=== PATIENT | female | born 1990 | race Two or more races ===

== ENCOUNTER 2024-08-31 12:00 | Emergency (ER) | payer OTHER, SELFPAY ==
[2024-08-31 12:25] VITALS: BP 141/91; PULSE 66; RESP 16; TEMP 36.7; O2SAT 99; BMI 37.5
--- NOTE | 2024-08-31 12:31 | XR_ITS ---
Examination: PA lateral chest 2 views Technique: Upright PA lateral chest 2 views Exam date and time: August 31, 2024 1127 hrs. Comparison 07/09/2024, May 05, 2022 Indications: Coughing today Findings: Normal heart size Lungs are clear. Stable small granuloma right midlung compared with May 05, 2022 Impression: No interval pneumonia or pulmonary edema
--- NOTE | 2024-08-31 12:31 | XR_ITS ---
Examination: CT abdomen and pelvis without contrast. Coronal 3-D reconstructions. Sagittal 2-D reconstructions. Date and time of exam:August 31, 2024 1652 hrs. Indications: Onset left lower abdominal pain beginning one week ago, episodes left upper abdominal pain also March 29, 2024, diagnosis primary hepatocellular disease CTDI: vol (mGy): 50.5 DLP: (mGycm): 874 Technique: Axial images of the abdomen have been obtained, 3 mm slice thickness Intravenous contrast material has not been administered. Low dose protocols were performed. One or more of the following dose reduction techniques were used; automated exposure control, adjustment of the mA and/or KV according to patient size, use of iterative reconstruction technique. Findings: No focal liver lesions No gallstones Spleen not enlarged No pancreatic or adrenal mass No renal or ureteral calculi, no hydronephrosis Normal appendix 8mm fat-containing umbilical hernia No bowel obstruction No diverticulitis Exophytic uterine mass, axial image 190 measuring 33 x 35 mm Urinary bladder contracted Mild osteopenia Impression: No renal or ureteral calculi, no hydronephrosis Normal appendix 8mm fat-containing umbilical hernia 33 x 35 mm exophytic uterine mass, recommend pelvic sonography follow-up
[2024-08-31 12:54] LABS: Basophils % (Auto) 0 % (0-2.5); Eosinophils # (Auto) 0.1 Thou/mm3 (0.0-0.5); Eosinophils % (Auto) 1 % (0-10); Hematocrit 42.6 % (36.0-46.0); Hemoglobin 14.4 g/dL (12.0-16.0); Immature Granulocytes % (Auto) 0 % (0-0); Immature Granulocytes Auto 0.02 Thou/mm3 (0.00-0.00); Lymphocytes # (Auto) 1.8 Thou/mm3 (1.0-4.8); Lymphocytes % (Auto) 29 % (10-50); Mean Corpuscular HGB Conc 33.8 g/dl (31.0-37.0); Mean Corpuscular Hemoglobin 28.7 pg (25.0-35.0); Mean Corpuscular Volume 85 fL (80-100); Monocytes # (Auto) 0.4 Thou/mm3 (0.0-0.8); Monocytes % (Auto) 6 % (0-12); Neutrophils # (Auto) 4.1 Thou/mm3 (1.8-7.7); Neutrophils % (Auto) 64 % (37-80); Nucleated Red Blood Cell % 0 /100 WBC (0); Platelet Count 313 Thou/mm3 (140-440); RDW Standard Deviation 39.4 fL (36.4-46.3); Red Blood Count 5.01 Miln/mm3 (4.00-5.20); White Blood Count 6.5 Thou/mm3 (3.6-11.0)
[2024-08-31 13:16] LABS: Alanine Aminotransferase 32 U/L (10-49); Albumin, Serum 4.9 gm/dL (3.5-5.0); Albumin/Globulin Ratio 1.7 (1.2-2.2); Alkaline Phosphatase 82 U/L (46-116); Anion Gap 5 (7-16); Aspartate Amino Transferase 25 U/L (0-34); BUN/Creatinine Ratio 16 Ratio (12-20); Bilirubin,Total 0.5 mg/dL (0.3-1.2); Blood Urea Nitrogen 13 mg/dL (9-23); Calcium 10.5 mg/dL (8.3-10.6); Calcium (Corrected) 10.5 mg/dL (8.5-10.1); Chloride 104 mMol/L (98-107); Creatinine (Component) 0.8 mg/dL (0.6-1.3); Estimated Creatinine Clearance 116.5 mL/min (>60); Globulin 2.9 gm/dL (2.3-3.5); Glucose 99 mg/dL (74-106); Lipase 47 U/L (12-53); Osmolality,Calculated 275 (275-295); Potassium 3.9 mMol/L (3.4-5.1); Sodium 138 mMol/L (136-145); Total Protein 7.8 gm/dL (5.7-8.2); Troponin I < 0.002 ng/mL (0.0-0.045); eGFR > 60 See Note
[2024-08-31 16:12] LABS: Collection Type, Urine Clean Catch
--- NOTE | 2024-08-31 16:12 | PD.EDRME ---
Rapid Medical Screening Exam RME Arrival date/time: 08/31/24 12:00 33-year-old female presents to the emergency department complaints of abdominal pain Chief Complaint: Abdominal Pain Time Seen by Provider: 08/31/24 12:12 Vital signs: Vital Signs Temperature 98.0 F 08/31/24 12:25 Pulse Rate 66 08/31/24 12:25 Respiratory Rate 16 08/31/24 12:25 Blood Pressure 141/91 H 08/31/24 12:25 Pulse Oximetry (%) 99 08/31/24 12:25 Oxygen Delivery Method Room Air 08/31/24 12:25
[2024-08-31 16:16] LABS: HCG Qualitative,Urine Negative
[2024-08-31 16:18] LABS: Bacteria,Urine Rare; Bilirubin,Urine Negative (Negative); Blood,Urine Negative (Negative); Clarity,Urine Clear (Clear/Hazy); Color,Urine Colorless (Lt Yel-Yel); Culture Indicated,Urine Not Indicated; Glucose, Urine Negative (Negative); Ketones,Urine Negative (Negative); Leukocyte Esterase,Urine Negative (Negative); Nitrite,Urine Negative (Negative); Protein,Urine Negative (Neg - Trace); RBC,Urine 3 /hpf (0-3); Specific Gravity,Urine 1.013 (1.001-1.035); Squamous Epithelial Cell,Urine 3 /hpf (0-5); Urobilinogen,Urine Negative mg/dL (0.0-1.0); WBC,Urine 3 /hpf (0-5)
[2024-08-31 16:57] VITALS: BP 143/92; PULSE 64; RESP 18; TEMP 36.3; O2SAT 99
[2024-08-31 18:39] VITALS: BP 131/86; PULSE 84; RESP 20; TEMP 36.4; O2SAT 100
--- NOTE | 2024-08-31 18:50 | EDNOTE_ITS ---
ED Abdominal Pain RME/HPI General Chief Complaint: Abdominal Pain Stated complaint: left lower ab/lung Time seen by provider: 08/31/24 12:12 Arrival date/time: 08/31/24 12:00 Limitations: no limitations RME / HPI RME / HPI narrative: 08/31/24 12:00 33-year-old female presents to the emergency department complaints of abdominal pain ----- Dr. Hollis'elissa Main ED Evaluation: 33yo female with no significant past medical history presents to the ED for a chief complaint of left-sided abdominal pain x 1 week. Patient describes the pain as sharp in nature. No radiation or migration. She denies any fever, chills, dysuria, N/V/D or any other associated symptoms. She states the pain does not worsen after eating. Patient states she saw her PCP this morning and was advised to come in for evaluation. No known allergies. Related Data Allergies Allergy/AdvReac Type Severity Reaction Status Date / Time NKA* Allergy Uncoded 01/22/16 23:37 Review of Systems Review of Systems Systems Reviewed: All systems reviewed, normal except as documented Past Medical History Social History SMOKING STATUS: Never smoker ED Exam General Limitations: Present no limitations General appearance: Present alert and in no apparent distress Head Head exam: Present atraumatic Eye Eye exam: Present normal appearance, PERRL and EOMI ENT ENT exam: Present normal exam, normal oropharynx and mucous membranes moist Neck Neck exam: Present normal inspection, full ROM and trachea midline Chest Chest inspection: Present normal inspection and symmetric chest wall rise Respiratory Respiratory exam: Present normal lung sounds bilaterally Cardiovascular Cardiovascular exam: Present regular rate, normal rhythm and normal heart sounds Abdominal Exam Abdominal exam: Present soft, tenderness (minimal to the left upper flank) and normal bowel sounds Extremities Exam Extremities exam: Present normal inspection and full ROM Back Exam Back exam: Present normal inspection and full ROM Neurological Exam Neurological exam: Present alert, oriented X3 and CN II-XII intact Psychiatric Psychiatric exam: Present normal affect and normal mood Skin Skin exam: Present warm, dry, intact and normal color Course Course Course Narrative: CXR is ordered for determining the etiology of chest pain. Quality Measures none Orders Category Date Time Status CT abdomen pelvis wo con Stat Exams 08/31/24 12:31 Completed XR chest 2V Stat Exams 08/31/24 12:31 Completed CBC Stat Lab 08/31/24 12:36 Completed Comprehensive Metabolic Panel Stat Lab 08/31/24 12:36 Completed HCG Qualitative,Urine Stat Lab 08/31/24 16:04 Completed Lipase Stat Lab 08/31/24 12:36 Completed Troponin I Stat Lab 08/31/24 12:36 Completed UA, C/S IF [Urinalysis, C/S if Indicated] Stat Lab 08/31/24 16:04 Completed Ketorolac Inj [Toradol Inj] Med 08/31/24 18:47 Discontinued 30 mg IM X1 ONE Vital Signs Vital signs: Vital Signs Temperature 98.0 F 08/31/24 12:25 Pulse Rate 66 08/31/24 12:25 Respiratory Rate 16 08/31/24 12:25 Blood Pressure 141/91 H 08/31/24 12:25 Pulse Oximetry (%) 99 08/31/24 12:25 Oxygen Delivery Method Room Air 08/31/24 12:25 Pulse ox is 99% on room air, which is normal according to my interpretation. Abdominal Pain MDM MDM Narrative MDM Narrative:: This is a 33-year-old female coming in with left abdominal pain x 1 week that is sharp in nature. There is no radiation. She saw her primary care this morning and was told to return to the emergency room. She is not having any dysuria, no change with food and no fever. No diarrhea. Her exam is normal. Minimal tenderness palpation along the musculoskeletal area on the left upper flank. Otherwise rest of her abdominal exam is normal. White count is 6 which is normal. H&H are normal with no anemia. Platelets are normal with no thrombocytopenia. LFTs are normal with no evidence of biliary colic and/or pancreatitis. Urinalysis is negative for UTI. I had a long discussion with the patient. At this time CT recommends an outpatient pelvic ultrasound. At patient agrees to follow-up as an outpatient for this. r Patient data External records reviewed:: [facility] previous records (Per chart review, patient has no previous ED visits or admissions to this facility.) Clinical information provided by:: patient Social determinants that could affect healthcare access:: none Patient has the following chronic illnesses:: none How is presenting disease/condition affected by chronic disease/condition?: no chronic disease Evaluation data The following diagnostics were reviewed and interpreted by me:: lab results and radiology exam(s) Lab and/or radiology exams considered but not ordered:: none Interpretation Summary: CBC is normal, CMP is normal, Lipase is normal, UA is unremarkable, HCG is negative, according to my interpretation. ---- I have personally reviewed the radiology data and agree with the radiologist's interpretation below: [facility] Report Signed Patient: CONCHA LING Record#: [id number] Birthdate: 1990 Age/Sex: 33 / F Location: [facility] Attending Dr: Ordering Physician: Pieter Phoenix NP, NP Date of Service: 08/31/24 Procedure(s): XR chest 2V Accession Number(s): [id number] cc: Lizett BEAVER)Pieter NP; Richi Sutton MD~ Examination: PA lateral chest 2 views Technique: Upright PA lateral chest 2 views Exam date and time: August 31, 2024 1127 hrs. Comparison 07/09/2024, May 05, 2022 Indications: Coughing today Findings: Normal heart size Lungs are clear. Stable small granuloma right midlung compared with May 05, 2022 Impression: No interval pneumonia or pulmonary edema Dictated By: Richi Sutton MD Signed By: <Electronically signed by Richi Sutton MD in OV> 08/31/24 1312 ------ [facility] Report Signed Patient: CONCHA LING Record#: [id number] Birthdate: 1990 Age/Sex: 33 / F Location: [facility] Attending Dr: Ordering Physician: Pieter Phoenix NP, NP Date of Service: 08/31/24 Procedure(s): CT abdomen pelvis wo con Accession Number(s): [id number] cc: Lizett BEAVER)Pieter NP; Miguel English MD; Richi Sutton MD~ Examination: CT abdomen and pelvis without contrast. Coronal 3-D reconstructions. Sagittal 2-D reconstructions. Date and time of exam:August 31, 2024 1652 hrs. Indications: Onset left lower abdominal pain beginning one week ago, episodes left upper abdominal pain also March 29, 2024, diagnosis primary hepatocellular disease CTDI: vol (mGy): 50.5 DLP: (mGycm): 874 Technique: Axial images of the abdomen have been obtained, 3 mm slice thickness Intravenous contrast material has not been administered. Low dose protocols were performed. One or more of the following dose reduction techniques were used; automated exposure control, adjustment of the mA and/or KV according to patient size, use of iterative reconstruction technique. Findings: No focal liver lesions No gallstones Spleen not enlarged No pancreatic or adrenal mass No renal or ureteral calculi, no hydronephrosis Normal appendix 8mm fat-containing umbilical hernia No bowel obstruction No diverticulitis Exophytic uterine mass, axial image 190 measuring 33 x 35 mm Urinary bladder contracted Mild osteopenia Impression: No renal or ureteral calculi, no hydronephrosis Normal appendix 8mm fat-containing umbilical hernia 33 x 35 mm exophytic uterine mass, recommend pelvic sonography follow-up Dictated By: Richi Sutton MD Signed By: <Electronically signed by Richi Sutton MD in OV> 08/31/24 1730 Medications / Prescriptions Medications or Prescriptions considered but not ordered:: none Medication administrations:: Medication Administration History Discontinued Medications Ketorolac Tromethamine (Ketorolac Inj 60 Mg/2 Ml Vial) 30 mg IM X1 ONE Stop: 08/31/24 18:48 Last Admin: 08/31/24 19:02 Dose: 30 mg Documented By: MS see above Consultations Consultation(s) initiated? (list below): No Diagnosis Differential diagnosis abdominal pain: diverticulitis, pancreatitis and other (pneumonia, musculoskeletal pain) Most likely diagnosis given after review of the tests above:: see below Admission Indicated Admission indicated?: not indicated Admission Request Was there a request for admission?: No Disposition Plan Disposition Plan: Discharge Discharge Attestation Discharge Attestation: The patient and all family members were given an opportunity to ask questions and understood the discharge instructions. Discharge instructions specifically effects, indications for sooner follow up or return to the emergency department, and the expected course of current diagnosis. Patient condition: Stable Discharge Plan Plan Patient Disposition: HOME (Self Care) Patient condition on transfer: Stable Prescriptions/Referrals Referrals: Miguel English MD [Primary Care Provider] - In 1 week Problem List Clinical Impression: Left-sided chest wall pain Patient/Caregiver Discharge Instructions Education Materials: ED Chest Pain, Uncertain Cause Additional Instructions: Follow-up with your primary care physician in the next 3 to [address] scan showed that you have an incidental finding and will need follow-up p elvic ultrasound as an outpatient. You have elected to do this with your primary care physician. You can take 600 mg Motrin or Tylenol 650 mg 2-3 times a day for the next 3 to 5 days. Print Language: Wolof Stand Alone Forms: Katya Award Info., Patient Portal Info Letter
[2024-08-31] MEDS: KETOROLAC INJ 60 MG/2 ML VIAL 30 MG IM (19:02)
== END 2024-08-31 19:18 | disposition home or self-care (01) ==
PROVIDERS: Nurse Practitioner Primary Care; Emergency Provider Emergency Medicine; PCP Specialist
DX: K42.9 Umbilical hernia without obstruction or gangrene (principal); N85.8 Other specified noninflammatory disorders of uterus; R07.89 Other chest pain; R05.9 Cough, unspecified
CPT/HCPCS: 36415; 71046; 74176; 80053; 81001; 81025; 83690; 84484; 85025; 96372; 99284; J1885

== ENCOUNTER → 2024-09-05 | Outpatient (CLI) | payer OTHER, SELFPAY ==
--- NOTE | 2024-09-05 | XR_ITS ---
Examination: Abdomen sonogram, complete Date and time of exam: September 05, 2024 0750 hours INDICATIONS: Abdominal pain 3 months worse the last 5 days. Technique: Multiple real-time grayscale transabdominal sonographic images of the abdomen have been obtained. Findings: Normal gallbladder Normal common bile duct 0.3 cm Pancreatic head 2.4 cm Aorta not enlarged Liver 14.6 cm fatty infiltration no focal liver lesions Normal hepatopedal portal venous flow Patent IVC Right kidney 10.8 x 4.6 x 5.5 cm renal cortex 1.5 cm Left kidney 10.6 x 4.8 x 5.5 cm cortex 1.7 cm Mild renal parenchymal scar formation Spleen 12.0 cm IMPRESSION: Normal gallbladder Liver normal size fatty liver
== END | disposition home or self-care (01) ==
LOC: CDIM 06:49
PROVIDERS: PCP Specialist; Referring Provider Specialist; Visit Provider Specialist
DX: K76.0 Fatty (change of) liver, not elsewhere classified (principal)
CPT/HCPCS: 76700

== ENCOUNTER → 2025-02-13 | Outpatient (CLI) | payer OTHER, SELFPAY ==
--- NOTE | 2025-02-13 15:54 | XR_ITS ---
Examination: Retroperitoneal ultrasound, complete Technique: Multiple high resolution grayscale images of the retroperitoneum obtained, including kidneys and bladder. Exam date and time:February 13, 2025 1609 hours INDICATIONS: Bilateral flank and lower back pain beginning one week ago FINDINGS: Right kidney 12.4 cm renal cortex 2.4 cm Left kidney 10.7 cm renal cortex 1.8 cm Mild bilateral renal parenchymal scar formation No hydronephrosis or renal calculi Bladder prevoid volume 99 cc unable to void, no bladder mass or bladder calculi IMPRESSION: Mild bilateral renal parenchymal scar formation No hydronephrosis or renal calculi
[2025-02-13 16:08] LABS: Collection Type, Urine Clean Catch
[2025-02-13 17:24] LABS: Bacteria,Urine Rare; Bilirubin,Urine Negative (Negative); Blood,Urine Negative (Negative); Clarity,Urine Clear (Clear/Hazy); Color,Urine Colorless (Lt Yel-Yel); Glucose, Urine Negative (Negative); Ketones,Urine Negative (Negative); Leukocyte Esterase,Urine Negative (Negative); Nitrite,Urine Negative (Negative); PH,Urine 6.5 (5.0-7.0); Protein,Urine Negative (Neg - Trace); RBC,Urine < 1 /hpf (0-3); Specific Gravity,Urine 1.006 (1.001-1.035); Squamous Epithelial Cell,Urine 1 /hpf (0-5); Urobilinogen,Urine Negative mg/dL (0.0-1.0); WBC,Urine 1 /hpf (0-5)
== END | disposition home or self-care (01) ==
LOC: CDIM 15:52 → COPL 16:07
PROVIDERS: PCP Specialist; Referring Provider Specialist; Visit Provider Radiology Diagnostic Radiology
DX: N28.89 Other specified disorders of kidney and ureter (principal); M54.50 Low back pain, unspecified
CPT/HCPCS: 76770; 81001; 87086

== ENCOUNTER → 2025-02-17 | Outpatient (CLI) | payer OTHER, SELFPAY ==
[2025-02-17 13:41] LABS: Collection Type, Urine Clean Catch
[2025-02-17 14:39] LABS: Bacteria,Urine Rare; Bilirubin,Urine Negative (Negative); Blood,Urine Negative (Negative); Clarity,Urine Clear (Clear/Hazy); Color,Urine Colorless (Lt Yel-Yel); Culture Indicated,Urine Not Indicated; Glucose, Urine Negative (Negative); Ketones,Urine Negative (Negative); Leukocyte Esterase,Urine Negative (Negative); Nitrite,Urine Negative (Negative); Protein,Urine Negative (Neg - Trace); RBC,Urine < 1 /hpf (0-3); Specific Gravity,Urine 1.011 (1.001-1.035); Squamous Epithelial Cell,Urine 1 /hpf (0-5); Urobilinogen,Urine Negative mg/dL (0.0-1.0); WBC,Urine 1 /hpf (0-5)
== END | disposition home or self-care (01) ==
LOC: SLDO 13:31
PROVIDERS: PCP Specialist; Referring Provider Specialist; Visit Provider Specialist
DX: N26.9 Renal sclerosis, unspecified (principal)
CPT/HCPCS: 81001

== ENCOUNTER → 2025-02-20 | Outpatient (CLI) | payer OTHER, SELFPAY ==
[2025-02-20 07:37] LABS: Misc Send Out* See Sep Rpt
[2025-02-20 08:36] LABS: Basophils % (Auto) 0 % (0-2.5); Eosinophils # (Auto) 0.1 Thou/mm3 (0.0-0.5); Eosinophils % (Auto) 2 % (0-10); Hematocrit 37.5 % (36.0-46.0); Hemoglobin 13.1 g/dL (12.0-16.0); Immature Granulocytes % (Auto) 0 % (0-0); Immature Granulocytes Auto 0.01 Thou/mm3 (0.00-0.00); Lymphocytes # (Auto) 1.7 Thou/mm3 (1.0-4.8); Lymphocytes % (Auto) 28 % (10-50); Mean Corpuscular HGB Conc 34.9 g/dl (31.0-37.0); Mean Corpuscular Hemoglobin 29.8 pg (25.0-35.0); Mean Corpuscular Volume 85 fL (80-100); Monocytes # (Auto) 0.3 Thou/mm3 (0.0-0.8); Monocytes % (Auto) 5 % (0-12); Neutrophils # (Auto) 3.9 Thou/mm3 (1.8-7.7); Neutrophils % (Auto) 65 % (37-80); Nucleated Red Blood Cell % 0 /100 WBC (0); Platelet Count 322 Thou/mm3 (140-440); RDW Standard Deviation 39.4 fL (36.4-46.3); Red Blood Count 4.39 Miln/mm3 (4.00-5.20)
[2025-02-20 09:01] LABS: Glucose Estimated Average 108 mg/dL (80-131); Hemoglobin A1C 5.4 % Hgb (4.8-6.0)
[2025-02-20 09:46] LABS: Sed Rate (ESR) 5 mm/hr (0-20)
[2025-02-20 10:03] LABS: Follicle Stimulating Hormone 6.24 mIU/mL (See Note)
[2025-02-20 10:12] LABS: Alanine Aminotransferase 37 U/L (10-49); Albumin, Serum 4.4 gm/dL (3.5-5.0); Albumin/Globulin Ratio 1.7 (1.2-2.2); Alkaline Phosphatase 73 U/L (46-116); Anion Gap 7 (7-16); Aspartate Amino Transferase 18 U/L (0-34); BUN/Creatinine Ratio 16 Ratio (12-20); Bilirubin,Total 0.6 mg/dL (0.3-1.2); Blood Urea Nitrogen 13 mg/dL (9-23); C-Reactive Protein < 0.5 mg/dL (0.0-0.9); Calcium 8.9 mg/dL (8.3-10.6); Calcium (Corrected) 8.9 mg/dL (8.5-10.1); Carbon Dioxide 28.2 mMol/L (20.0-31.0); Cardiac Risk Estimate 2.9 RATIO (3.7-5.6); Chloride 106 mMol/L (98-107); Cholesterol 144 mg/dL (132-200); Creatinine (Component) 0.8 mg/dL (0.6-1.3); Globulin 2.6 gm/dL (2.3-3.5); Glucose 96 mg/dL (74-106); HDL Cholesterol 50 mg/dL (40-60); LDL Cholesterol,Calculated 79 mg/dL (0-130); Osmolality,Calculated 281 (275-295); Potassium 3.8 mMol/L (3.4-5.1); Sodium 141 mMol/L (136-145); Thyroid Stimulating Hormone 1.29 uIU/mL (0.55-4.78); Triglycerides 74 mg/dL (30-150); eGFR > 60 See Note
[2025-03-06 06:32] LABS: 17-Hydroxyprogesterone* 28 ng/dL; DHEA Sulfate* 139 mcg/dL (23-266); Estradiol, Ultrasensitive* 33 pg/mL; Luteinizing Hormone* 2.7 mIU/mL; Testosterone,Total* 17 ng/dL (2-45)
== END | disposition home or self-care (01) ==
LOC: COPL 07:12
PROVIDERS: PCP Specialist; Referring Provider Specialist; Visit Provider Specialist
DX: R10.12 Left upper quadrant pain (principal); N92.5 Other specified irregular menstruation; E66.09 Other obesity due to excess calories; N18.2 Chronic kidney disease, stage 2 (mild); E28.2 Polycystic ovarian syndrome
CPT/HCPCS: 36415; 80053; 80061; 82043; 82570; 82627; 82670; 83001; 83002; 83036; 83498; 84146; 84403; 84443; 85025; 85652; 86140; 86900; 86901

== ENCOUNTER 2025-04-13 20:39 | Emergency (ER) | payer OTHER, SELFPAY ==
[2025-04-13 20:40] VITALS: BMI 37.2
--- NOTE | 2025-04-13 20:59 | XR_ITS ---
Examination: Knee, right , 3 views Technique: Knee AP, lateral, oblique 3 views Date and time of exam: April 13, 2027 2111 hours INDICATIONS: Patient fell today with injury to the knee, knee pain. FINDINGS: No fracture or dislocation. No foreign body IMPRESSION: No fracture dislocation
--- NOTE | 2025-04-13 21:00 | PD.EDLOWEX ---
Lower Extremity Injury RME/HPI General Chief Complaint: Extremity Injury, Lower Stated Complaint: RIGHT KNEE INJURY Time Seen by Provider: 04/13/25 20:47 Source: patient, RN notes reviewed and old records reviewed Arrival date/time: 04/13/25 20:39 Mode of arrival: wheelchair Limitations: no limitations RME / HPI RME / HPI Narrative: 34yof presents to ED for knee pain s/p injury today. Patient states her dog knocked her over and she fell to the ground twisting her right knee, c/o pain and limited ROM. No medications or treatments [employer]. No deformity reported. Related Data Previous Rx's ?Medication ?Instructions ?Recorded ibuprofen 600 mg tablet 600 mg PO Q6H PRN pain #30 tabs 04/13/25 Allergies Allergy/AdvReac Type Severity Reaction Status Date / Time No Known Allergies Allergy Verified 04/13/25 20:40 Review of Systems Review of Systems Systems Reviewed: All systems reviewed, normal except as documented Musculoskeletal Musculoskeletal: Reports arthralgias, Denies deformity, Denies joint swelling, Reports limited range of motion, Denies numbness and Denies tingling Neurologic Neurologic: Denies numbness and Denies tingling Past Medical History Past Medical History GASTROINTESTINAL: Positive Obesity Surgical History OTHER SURGICAL HX: Denies past surgical history Social History SMOKING STATUS: Never smoker SUBSTANCE USE: does not use ALCOHOL: Never ED Exam General Limitations: Present no limitations General appearance: Present alert and in no apparent distress Head Head exam: Present atraumatic and normocephalic Eye Eye exam: Present normal appearance, PERRL and EOMI ENT ENT exam: Present normal exam and mucous membranes moist Neck Neck exam: Present normal inspection and full ROM Chest Chest inspection: Present normal inspection and symmetric chest wall rise Respiratory Respiratory exam: Present normal lung sounds bilaterally; Absent respiratory distress Cardiovascular Cardiovascular exam: Present regular rate and normal rhythm Extremities Exam Extremities exam: Present other (Tenderness to anterior right knee with superficial abrasion. No swelling. Limited ROM 2/2 pain. Distal pulses and sensation intact) Neurological Exam Neurological exam: Present alert and oriented X3 Psychiatric Psychiatric exam: Present normal affect and normal mood Skin Skin exam: Present warm and dry Course Quality Measures none Orders Category Date Time Status Crutches .NOW Care 04/13/25 22:20 Completed finn wrap [Splint / Immobilizer] STAT Care 04/13/25 22:20 Completed XR knee RT 3V Stat Exams 04/13/25 20:59 Completed Ibuprofen Tab [Motrin Tab] Med 04/13/25 20:59 Discontinued 800 mg PO X1 ONE Vital Signs Vital signs: Vital Signs Temperature 98.6 F 04/13/25 21:03 Pulse Rate 70 04/13/25 21:03 Respiratory Rate 17 04/13/25 21:03 Blood Pressure 121/78 04/13/25 21:03 Pulse Oximetry (%) 98 04/13/25 21:03 Oxygen Delivery Method Room Air 04/13/25 21:03 Extremity Injury, Lower MDM Narrative MDM Narrative:: 34yof presents to ED for knee pain s/p injury today. Patient states her dog knocked her over and she fell to the ground twisting her right knee, c/o pain and limited ROM. No medications or treatments [employer]. No deformity reported. Patient is neurovascularly intact. Encouraged RICE therapy, motrin/tylenol prn pain. Finn wrap applied to right knee, crutches given in ED. Ortho referral given for follow up and further mgmt as needed. Stable for dc, RTED precautions given. Patient data External records reviewed:: [facility] previous records (08/31/2024 ED visit for chest wall pain) Clinical information provided by:: patient Social determinants that could affect healthcare access:: other (specify) (Poor access to healthcare) Patient has the following chronic illnesses:: Obesity How is presenting disease/condition affected by chronic disease/condition?: exacerbated by Evaluation data The following diagnostics were reviewed and interpreted by me:: radiology exam(s) Lab and/or radiology exams considered but not ordered:: None Interpretation Summary: Knee x-rays: No fracture or dislocation per my read Medications / Prescriptions Medications or Prescriptions considered but not ordered:: None Medication administrations:: Medication Administration History Discontinued Medications Ibuprofen (Ibuprofen Tab 400 Mg Tablet) 800 mg PO X1 ONE Stop: 04/13/25 21:00 Last Admin: 04/13/25 21:26 Dose: 800 mg Documented By: EF Above medication administered in ED Consultations Consultation(s) initiated? (list below): No Diagnosis Extremity Injury, Lower Differential Diagnosis: other (Fracture, dislocation, sprain, strain, contusion, MSK pain) Most likely diagnosis given after review of the tests above:: Knee sprain Admission Indicated Admission indicated?: not indicated Admission Request Was there a request for admission?: No Disposition Plan Disposition Plan: Discharge Discharge Attestation Discharge Attestation: The patient and all family members were given an opportunity to ask questions and understood the discharge instructions. Discharge instructions specifically effects, indications for sooner follow up or return to the emergency department, and the expected course of current diagnosis. Patient condition: Stable Discharge Plan Plan Patient Disposition: HOME (Self Care) Patient condition on transfer: Stable Prescriptions/Referrals Prescriptions/Med Rec: New ibuprofen 600 mg tablet 600 mg PO Q6H PRN (Reason: pain) Qty: 30 0RF Referrals: Miguel English MD [Primary Care Provider] - In 1 week Daniel Valentin MD [Physician] - (as needed/if symptoms worsen) Problem List Clinical Impression: Right knee sprain Patient/Caregiver Discharge Instructions Education Materials: ED Knee Sprain Print Language: Telugu Stand Alone Forms: Katya Award Info., Patient Portal Info Letter PA/[employer] Supervising Physician PA/[employer] Supervising Physician: Gustavo
[2025-04-13 21:03] VITALS: BP 121/78; PULSE 70; RESP 17; TEMP 37; O2SAT 98
[2025-04-13] MEDS: IBUPROFEN TAB 400 MG TABLET 800 MG PO (21:26)
== END 2025-04-13 22:44 | disposition home or self-care (01) ==
PROVIDERS: Emergency Provider Emergency Medicine; PCP Specialist
DX: S83.91XA Sprain of unspecified site of right knee, initial encounter (principal); W18.30XA Fall on same level, unspecified, initial encounter
CPT/HCPCS: 73562; 99283; A9270

== ENCOUNTER → 2025-04-25 | Outpatient (CLI) | payer OTHER, SELFPAY ==
--- NOTE | 2025-04-25 07:30 | XR_ITS ---
Exam: MRI knee without contrast, right Date and time of exam: April 25, 2025 0741 hours INDICATIONS: Patient fell 2 weeks ago with injury to the knee, medial knee pain and swelling unable to bend the knee Technique: Multiple axial, coronal, and sagittal sections on the knee have been obtained. T2-Weighted sagittal, fat-suppressed images, TR 3,500, TE 62, T2 weighted coronal fat-saturated images, TR 3,500, TE 62 Proton density sagittal sections, TR 1800, TE 31. T-1 weighted coronal images, TR 524, TE 13.0 Findings: Medial meniscus anterior horn intact. Medial meniscus, body is intact. Posterior horn medial meniscus intact. Lateral meniscus anterior horn is intact Lateral meniscus, body is intact Posterior horn lateral meniscus is intact Anterior cruciate ligament high-grade sprain Posterior cruciate ligament appears intact. Knee effusion is moderate. Quadriceps and patellar tendons appear intact. There is no evidence of tendinosis. Inflammatory change or fracture of Hoffa's fat pad is not seen. Medial patellar facet demonstrates no thinning. Lateral patellar facet cartilage demonstrates no thinning. Trochlear cartilage demonstrates no thinning. Marrow signal increased medial lateral femoral condyles, bone contusion. Medial collateral ligament mild sprain. No meniscocapsular separation is seen. Illiotibial band and fibular collateral ligament are intact. Biceps femoris tendons appear intact. Medial femoral condylar articular cartilage demonstrates no thinning. Lateral femoral condylar articular cartilage demonstratesno thinning. Tibial plateau cartilage demonstrates no thinning. Impression: High-grade sprain anterior cruciate ligament Mild sprain medial collateral ligament Bone contusions medial lateral femoral condyles
== END | disposition home or self-care (01) ==
LOC: SMRI 07:10
PROVIDERS: PCP Specialist; Referring Provider Orthopaedic Surgery; Visit Provider Orthopaedic Surgery
DX: S83.511A Sprain of anterior cruciate ligament of right knee, initial encounter (principal); S83.411A Sprain of medial collateral ligament of right knee, initial encounter; S70.11XA Contusion of right thigh, initial encounter; W19.XXXA Unspecified fall, initial encounter
CPT/HCPCS: 73721